=== PATIENT | male | born 1990 | race Caucasian/White ===

== ENCOUNTER 2021-11-11 15:41 | Inpatient (IN) | payer MEDICAID, SELFPAY ==
[2021-11-11 16:16] VITALS: BP 153/98; PULSE 85; RESP 16; TEMP 36.8; O2SAT 97; BMI 46.9
[2021-11-11 16:51] VITALS: BP 143/96; PULSE 73; RESP 18; TEMP 36.8; O2SAT 97
[2021-11-11 18:37] VITALS: BP 112/73; PULSE 65; RESP 16; TEMP 36.7; O2SAT 98
[2021-11-11 20:13] VITALS: BP 142/109; PULSE 70; RESP 17; O2SAT 99
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
[2021-11-11 21:08] LABS: Basophils # 0.1 10^3/uL (0.0-0.1); Basophils % 0.9 %; Eosinophils # 0.3 10^3/uL (0.0-0.8); Eosinophils % 3.6 %; Hematocrit 44.8 % (42.0-52.0); Hemoglobin 14.8 g/dL (11.7-16.6); Lymphocytes % 33.9 %; Mean Corpuscular Hemoglobin 29.1 pg (28.0-34.0); Mean Corpuscular Volume 88.2 fl (80-94); Monocytes # 0.8 10^3/uL (0.2-0.9); Monocytes % 9.4 %; Neutrophils # 4.54 10^3/uL (1.8-7.7); Neutrophils % 51.7 %; Nucleated Red Blood Cells % 0 %; Platelet Count 306 10^3/cmm (130-400); Red Blood Count 5.08 10^6/uL (4.1-5.3); Red Cell Distribution Width 12.6 % (12.1-15.1); White Blood Count 8.8 10^3/uL (4.0-10.0)
[2021-11-11 21:12] LABS: Acetaminophen < 5.0 ug/mL (10-30); Alanine Aminotransferase 29 U/L (0-41); Albumin Level 4.3 g/dL (3.5-5.2); Alcohol Level < 10 mg/dL (0-10); Alkaline Phosphatase 70 U/L (40-130); Anion Gap 12.9 (5-19); Aspartate Amino Transferase 16 U/L (0-40); Blood Urea Nitrogen 13 mg/dL (6-20); Calcium 9.2 mg/dL (8.5-10.5); Carbon Dioxide 26 mmol/L (22-29); Chloride 101 mmol/L (98-107); Globulin 3.1 g/dL (1.3-4.6); Glomerular Filtration Rate 86.6 mL/min (90-130); Glucose 88 mg/dL (65-115); Osmolality Calculated 282 mOsm/kg (285-295); Potassium 3.9 mmol/L (3.5-5.1); Salicylate < 0.3 mg/dL (3-10); Sodium 136 mmol/L (136-145); Total Bilirubin 0.3 mg/dL (0.15-1.2); Total Protein 7.4 g/dL (6.6-8.7)
[2021-11-11 21:16] LABS: Amphetamines Screen Urine Negative (Negative); Barbiturates Screen Urine Negative (Negative); Benzodiazepines Screen Urine Negative (Negative); Cocaine Screen Urine Negative (Negative); Opiate Screen Urine Negative (Negative); PCP Screen Urine Negative (Negative); THC Screen Urine Negative (Negative)
[2021-11-11 22:16] VITALS: PULSE 84; RESP 16; O2SAT 96
--- NOTE | 2021-11-11 22:29 | PC.NURSE ---
Report called to Pool RAMIREZ on NPU, patient assigned to
--- NOTE | 2021-11-11 22:43 | PC.NURSE ---
Patient changed into scrubs, to be escorted to npu
[2021-11-11] MEDS: nicotine 2 mg Gum BUCCAL (22:59)
[2021-11-11] MEDS: hyDROXYzine 25 mg Capsule 50 MG PO (22:59)
[2021-11-11] MEDS: trazodone 50 mg Tablet PO (22:59)
[2021-11-12] MEDS: nicotine 2 mg Gum BUCCAL (03:51)
[2021-11-12 06:00] VITALS: RESP 18
[2021-11-12] MEDS: nicotine 4 mg lozenge MUCOUS MEM ×5 (06:52→17:46)
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
[2021-11-12 14:00] VITALS: BP 139/64; PULSE 70; RESP 15; TEMP 36.4; O2SAT 97
[2021-11-12] MEDS: buPROPion XL (24 HR) 150 mg Tablet PO (16:53)
[2021-11-12] MEDS: acetaminophen 325 mg Tablet 650 MG PO (17:46)
[2021-11-12 20:23] VITALS: RESP 18
[2021-11-13] MEDS: nicotine 4 mg lozenge MUCOUS MEM ×6 (05:58→17:34)
[2021-11-13 06:00] VITALS: RESP 20
[2021-11-13] MEDS: buPROPion XL (24 HR) 150 mg Tablet PO (08:18)
[2021-11-13] MEDS: hyDROXYzine 25 mg Capsule 50 MG PO (13:26)
--- NOTE | 2021-11-13 13:27 | PC.NURSE ---
PRN VISTARIL 50 MG GIVEN PO PER PT C/O ANXIETY
[2021-11-13 13:51] VITALS: BP 149/104; PULSE 100; RESP 20; TEMP 36.4; O2SAT 93
--- NOTE | 2021-11-13 17:54 | W.PM.NPUPNS ---
Subjective NPU Subjective: Patient presents today continuing to process the challenges that have kept him in a rut for the past 6 years. He discussed different cognitive reframes. He identified that there was a need for him to make some changes and we discussed optimizing medications to assist in that change. He identified that there have been a time that he had been on Strattera for ADHD and that it seemed to help but not fully. But it appears that he was on subtherapeutic doses so we discussed the risk-benefit alternatives of continuing the Strattera with a plan to titrate to 80 mg after a week and he understood and agreed to proceed as is documented in this note. Mental Status Exam MSE Comments: This is a morbidly obese white male in hospital scrubs with limited grooming but adequate eye contact. No abnormal movements except for mild psychomotor retardation. Cooperative with exam in mild distress. Speech was more normal rate and volume. Mood described as pretty down, affect congruent. Thought process organized, thought content: patient denies suicidal or homicidal ideation, there were no delusions reported or noted, he denied any auditory or visual hallucinations. Attention and concentration were intact and memory appeared reliable but none were formally tested. He is alert and oriented times three. Insight and judgment appeared fair and impulse control appeared fair Vitals/I&O/Wt Last Vital Signs Temp 97.7 F 11/13/21 20:51 Pulse 89 11/13/21 20:51 Resp 18 11/13/21 20:51 BP 160/102 11/13/21 20:51 Pulse Ox 97 11/13/21 20:51 O2 Del Method 11/13/21 13:51 Weight last 48 hrs Weight 148.325 kg Data NPU : 11/11/21 20:41 11/11/21 20:41 A&P Assessment and plan (1) PTSD (post-traumatic stress disorder): Status: Acute (2) Depression: Status: Acute (3) Generalized anxiety disorder: Status: Acute (4) Dysthymic disorder: Status: Acute (5) History of ADHD: Status: Acute Plan This is a 31-year-old white male with a long history of trauma, subpar life functioning, depression and despair who presents reporting that he cannot go on like he had been. 1. Continue current medication. Started Wellbutrin XL 130 mg p.o. every morning. Initiate Strattera 40 mg p.o. every morning with meals with a plan to titrate to 80 mg in 1 week. 2. Continue every 15 minute checks for safety. 3. Encourage individual, group and milieu therapies. Involuntary Hold Information 96 Hour Hold: 96 Hour Involuntary Admission: No Attestations NPU Medical Necessity Statement*: Inpatient hospitalization is medically necessary and the clinically appropriate intervention at this time. We will monitor medication to make changes as indicated. Likely length of stay 1-3 days. 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
[2021-11-13 20:51] VITALS: BP 160/102; PULSE 89; RESP 18; TEMP 36.5; O2SAT 97
[2021-11-14 06:00] VITALS: BP 164/94; PULSE 64; RESP 16; TEMP 37; O2SAT 98
[2021-11-14] MEDS: nicotine 4 mg lozenge MUCOUS MEM ×3 (06:20→11:29)
[2021-11-14] MEDS: buPROPion XL (24 HR) 150 mg Tablet PO (08:17)
[2021-11-14] MEDS: atomoxetine 40 mg Capsule PO (08:19)
[2021-11-14 14:00] VITALS: BP 140/92; PULSE 95; RESP 18; TEMP 36.6; O2SAT 96
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
[2021-11-14 15:28] VITALS: BP 140/92; PULSE 95; RESP 18; TEMP 36.6; O2SAT 96
== END 2021-11-14 16:07 | disposition home or self-care (01) | DRG 881 ==
LOC: ER 22:15 → NP 22:27
PROVIDERS: Admitting Provider Psychiatry & Neurology Psychiatry; Emergency Provider Emergency Medicine; PCP Family Medicine; Visit Provider Psychiatry & Neurology Psychiatry
DX: F32.A Depression, unspecified (principal); Z68.42 Body mass index [BMI] 45.0-49.9, adult; F10.10 Alcohol abuse, uncomplicated; F43.10 Post-traumatic stress disorder, unspecified; F41.1 Generalized anxiety disorder; F34.1 Dysthymic disorder; E66.01 Morbid (severe) obesity due to excess calories; F90.9 Attention-deficit hyperactivity disorder, unspecified type
CPT/HCPCS: 36415; 80053; 80306; 80307; 85025; 94664; 97165; 99285

== ENCOUNTER → 2022-05-18 14:09 | Outpatient (BNVA) | payer MEDICAID, SELFPAY | PROVIDERS: PCP Family Medicine; Visit Provider Registered Nurse | DX: Z79.899 Other long term (current) drug therapy (principal) | CPT/HCPCS: 80053; 80061; 82306; 82607; 83036; 84443 ==

== ENCOUNTER → 2022-06-05 11:28 | Outpatient (BNVA) | payer MEDICAID, SELFPAY | PROVIDERS: PCP Family Medicine; Visit Provider Psychiatry & Neurology Neurology | DX: F43.10 Post-traumatic stress disorder, unspecified (principal) | CPT/HCPCS: 80061; 83036 ==